=== PATIENT | male | born 1995 | race African-American/Black ===

== ENCOUNTER 2016-06-10 10:06 | Emergency (ER) | payer OTHER ==
[~2016-06-10] VITALS: Ht 177.8 cm; Wt 86.2 kg
[2016-06-10] MEDS ORDERED: ZOFR4TAB3 PO (15:07)
[2016-06-10 15:24] VITALS: BP 138/87
== END 2016-06-10 15:23 | disposition home or self-care (01) ==
LOC: M ED 14:10
DX: R11.2 Nausea with vomiting, unspecified (principal); R19.7 Diarrhea, unspecified

== ENCOUNTER 2016-09-24 18:03 | Emergency (ER) | payer OTHER ==
[~2016-09-24] VITALS: Ht 177.8 cm; Wt 92.7 kg
[~2016-09-24 18:03] MED LIST: ZOFR4TAB3 PO
[2016-09-24 18:04] VITALS: BP 134/95
[2016-09-24] MEDS ORDERED: LIDOCAINE 1% MDV 20ML VIAL As Ordered ONE (18:27)
[2016-09-24] MEDS ORDERED: LIDOCAINE 1% MDV 20ML VIAL IM ONE (18:30)
[2016-09-24] MEDS ORDERED: IBUPROFEN 600 MG TAB PO ONE (18:45)
--- NOTE | 2016-09-24 18:53 | REP ---
REASON: Pain with injury to the 4th digit. COMPARISON: None. There is a soft tissue laceration involving the tip of the 4th digit with an associated tuft fracture. Exam is otherwise within normal limits. Signed by Miguel Chong DO 09/24/2016 07:02 P
[2016-09-24] MEDS ORDERED: CEPHALEXIN 500 MG CAP PO ONE (19:00)
[2016-09-24] MEDS ORDERED: KEFL500C17 PO (19:19)
== END 2016-09-24 19:27 | disposition home or self-care (01) ==
LOC: M ED 19:19
DX: S62.601B Fracture of unspecified phalanx of left index finger, initial encounter for open fracture (principal); S61.215A Laceration without foreign body of left ring finger without damage to nail, initial encounter; W23.1XXA Caught, crushed, jammed, or pinched between stationary objects, initial encounter; Y92.89 Other specified places as the place of occurrence of the external cause; Y93.89 Activity, other specified; Y99.1 Military activity